=== PATIENT | female | born 1965 | race Caucasian/White ===

== ENCOUNTER → 2017-12-02 | Outpatient (CLI) | payer BC ==
[2017-12-03 02:26] LABS: Rheumatoid Factor <4 IU/mL (0-13)
== END | disposition home or self-care (01) ==
LOC: LABWHC1 15:13
PROVIDERS: ATTEND Orthopaedic Surgery
DX: M06.9 Rheumatoid arthritis, unspecified (principal)
CPT/HCPCS: 36415; 85652; 86038; 86140; 86431

== ENCOUNTER → 2018-07-07 | Outpatient (CLI) | payer MEDICAID, BC ==
--- NOTE | 2018-07-07 22:58 | FL ---
MODIFIED SWALLOW / DEGLUTITION STUDY DATE OF EXAM: 07/07/2018 CLINICAL HISTORY: 53-year-old female with food sticking in chest, Dysphagia. TECHNIQUE: Deglutition study is performed utilizing thin liquid barium, honey and nectar thick liqui d barium, barium thick applesauce, and barium coated cracker. COMPARISON: None. Total fluoroscopy time: 1 minute 40 seconds. Total images: None. Real-time fluoroscopy support was provided to speech pathology. FINDINGS: Anterior cervical scar within the lower cervical spine causes mild posterior impression on hypopharyn geal wall. Mild cervical reflux is demonstrated. The AP view shows delayed clearance with solids and liquids from the thoracic portion of the esophagus. No penetration or aspiration is demonstrated. IMPRESSION: 1. No evidence for penetration or aspiration. There is mild cervical reflux demonstrated. In addition , the AP view shows delayed clearance from the thoracic portion of the esophagus. This may be seconda ry to esophageal dysmotility. Esophagram can be performed to assess the mucosa, esophageal caliber, a nd motility. 2. Please refer to speech therapist notes for further details if necessary.
== END | disposition home or self-care (01) ==
LOC: RADFLMAIN 10:50
PROVIDERS: ATTEND Internal Medicine
DX: K21.9 Gastro-esophageal reflux disease without esophagitis (principal); K22.8 Other specified diseases of esophagus; Z88.1 Allergy status to other antibiotic agents
CPT/HCPCS: 74230

== ENCOUNTER 2018-07-24 09:02 | Inpatient (IN) | payer MEDICAID, BC ==
--- NOTE | 2018-07-24 09:27 | ED ---
General Adult HPI - General Chief complaint: Shortness of Breath Stated complaint: EMEKA/poss pneumonia Time Seen by Provider: 07/24/18 09:05 Source: patient, RN notes reviewed Mode of arrival: wheelchair Limitations: no limitations - History of Present Illness Initial comments: [id number] female presents emergency Department complaining shortness of breath and some chest pain in the substernal region. Patient states last night she had a fever for 102 and started a slight cough. Patient states she denies any sputum production. Patient states she had pneumonia last year and this is what this feels like. Patient denies any history of COPD or asthma. Patient denies any cardiac issues. Though patient states she feels very short of breath her oxygenation is 100%. Patient denies any abdominal pain patient denies nausea vomiting diarrhea. Patient denies any lightheadedness dizziness or near syncopal episode. Patient denies any history of anxiety. Patient denies any calf pain or leg swelling. - Related Data Allergies Allergy/AdvReac Type Severity Reaction Status Date / Time levofloxacin [From Levaquin] Allergy Unknown Verified 07/24/18 09:10 Review of Systems ROS Statement: Those systems with pertinent positive or pertinent negative responses have been documented in the HPI. ROS Other: All systems not noted in ROS Statement are negative. Past Medical History Past Medical History: Pneumonia History of Any Multi-Drug Resistant Organisms: None Reported Past Surgical History: Cholecystectomy, Hernia Repair, Hysterectomy, Joint Replacement Additional Past Surgical History / Comment(s): Mutiple knee surgeries Past Psychological History: No Psychological Hx Reported Smoking Status: Never smoker Past Alcohol Use History: Occasional Past Drug Use History: None Reported General Exam - General Exam Comments Initial Comments: GENERAL: Patient is well-developed and well-nourished. Patient is nontoxic and well- hydrated and is in mild distress. ENT: Neck is soft and supple. No significant lymphadenopathy is noted. Oropharynx is clear. Moist mucous membranes. Neck has full range of motion without eliciting any pain. EYES: The sclera were anicteric and conjunctiva were pink and moist. Extraocular movements were intact and pupils were equal round and reactive to light. Eyelids were unremarkable. PULMONARY: Unlabored respirations. Good breath sounds bilaterally. No audible rales rhonchi or wheezing was noted. CARDIOVASCULAR: There is a regular rate and rhythm without any murmurs gallops or rubs. ABDOMEN: Soft and nontender with normal bowel sounds. No palpable organomegaly was noted. There is no palpable pulsatile mass. SKIN: Skin is clear with no lesions or rashes and otherwise unremarkable. NEUROLOGIC: Patient is alert and oriented x3. Cranial nerves II through XII are grossly intact. Motor and sensory are also intact. Normal speech, volume and content. Symmetrical smile. MUSCULOSKELETAL: Normal extremities with adequate strength and full range of motion. No lower extremity swelling or edema. No calf tenderness. LYMPHATICS: No significant lymphadenopathy is noted PSYCHIATRIC: Normal psychiatric evaluation. Patient appears mildly anxious Limitations: no limitations Course Vital Signs 07/24/18 07/24/18 07/24/18 09:05 10:30 10:40 Temperature 98.0 F Pulse Rate 109 H 76 Respiratory 22 9 L Rate Blood Pressure 138/83 112/78 123/67 O2 Sat by Pulse 100 95 97 Oximetry 07/24/18 07/24/18 07/24/18 10:50 11:00 11:10 Temperature Pulse Rate 81 87 83 Respiratory 12 9 L 18 Rate Blood Pressure 123/67 123/67 123/67 O2 Sat by Pulse 98 96 96 Oximetry 07/24/18 11:20 Temperature Pulse Rate Respiratory Rate Blood Pressure 123/67 O2 Sat by Pulse Oximetry Medical Decision Making - Medical Decision Making EKG shows normal sinus rhythm at 80 bpm [place] interval 150 QRS 84 QT interval 346 QTC is 399. Patient's EKG shows no ST segment elevation or depression or T wave abnormalities are noted. Chest x-ray showed no acute abnormality. Computed tomography scan showed bilateral patchy infiltrate consistent with pneumonia at this point in time at 105 patient was considered to be septic. - Lab Data Result diagrams: 07/24/18 10:12 07/24/18 10:12 Lab Results 07/24/18 07/24/18 07/24/18 Range/Units 10:12 10:12 10:12 WBC 14.5 H (3.8-10.6) k/uL RBC 4.56 (3.80-5.40) m/uL Hgb 13.9 (11.4-16.0) gm/dL Hct 41.6 (34.0-46.0) % MCV 91.3 (80.0-100.0) fL MCH 30.6 (25.0-35.0) pg MCHC 33.5 (31.0-37.0) g/dL RDW 13.5 (11.5-15.5) % Plt Count 239 (150-450) k/uL Neutrophils % 88 % Lymphocytes % 6 % Monocytes % 4 % Eosinophils % 1 % Basophils % 0 % Neutrophils # 12.8 H (1.3-7.7) k/uL Lymphocytes # 0.8 L (1.0-4.8) k/uL Monocytes # 0.6 (0-1.0) k/uL Eosinophils # 0.2 (0-0.7) k/uL Basophils # 0.1 (0-0.2) k/uL PT (9.0-12.0) sec INR (<1.2) APTT (22.0-30.0) sec D-Dimer (<0.60) mg/L FEU Sodium 142 (137-145) mmol/L Potassium 4.4 (3.5-5.1) mmol/L Chloride 112 H (98-107) mmol/L Carbon Dioxide 21 L (22-30) mmol/L Anion Gap 9 mmol/L BUN 6 L (7-17) mg/dL Creatinine 0.88 (0.52-1.04) mg/dL Est GFR (CKD-EPI)AfAm 88 (>60 ml/min/1.73 sqM) Est GFR (CKD-EPI)NonAf 76 (>60 ml/min/1.73 sqM) Glucose 110 H (74-99) mg/dL Plasma Lactic Acid Art (0.7-2.0) mmol/L Calcium 9.7 (8.4-10.2) mg/dL Magnesium 1.6 (1.6-2.3) mg/dL Total Bilirubin 1.0 (0.2-1.3) mg/dL AST 30 (14-36) U/L ALT 30 (9-52) U/L Alkaline Phosphatase 50 (38-126) U/L Total Creatine Kinase 68 (30-135) U/L CK-MB (CK-2) 0.5 (0.0-2.4) ng/mL CK-MB (CK-2) Rel Index 0.7 Troponin I <0.012 (0.000-0.034) ng/mL NT-Pro-B Natriuret Pep pg/mL Total Protein 6.7 (6.3-8.2) g/dL Albumin 3.7 (3.5-5.0) g/dL Influenza Type A RNA (Not Detectd) Influenza Type B (PCR) (Not Detectd) 07/24/18 07/24/18 07/24/18 Range/Units 10:12 10:12 10:12 WBC (3.8-10.6) k/uL RBC (3.80-5.40) m/uL Hgb (11.4-16.0) gm/dL Hct (34.0-46.0) % MCV (80.0-100.0) fL MCH (25.0-35.0) pg MCHC (31.0-37.0) g/dL RDW (11.5-15.5) % Plt Count (150-450) k/uL Neutrophils % % Lymphocytes % % Monocytes % % Eosinophils % % Basophils % % Neutrophils # (1.3-7.7) k/uL Lymphocytes # (1.0-4.8) k/uL Monocytes # (0-1.0) k/uL Eosinophils # (0-0.7) k/uL Basophils # (0-0.2) k/uL PT 10.2 (9.0-12.0) sec INR 1.0 (<1.2) APTT 22.7 (22.0-30.0) sec D-Dimer 0.64 H (<0.60) mg/L FEU Sodium (137-145) mmol/L Potassium (3.5-5.1) mmol/L Chloride (98-107) mmol/L Carbon Dioxide (22-30) mmol/L Anion Gap mmol/L BUN (7-17) mg/dL Creatinine (0.52-1.04) mg/dL Est GFR (CKD-EPI)AfAm (>60 ml/min/1.73 sqM) Est GFR (CKD-EPI)NonAf (>60 ml/min/1.73 sqM) Glucose (74-99) mg/dL Plasma Lactic Acid Art (0.7-2.0) mmol/L Calcium (8.4-10.2) mg/dL Magnesium (1.6-2.3) mg/dL Total Bilirubin (0.2-1.3) mg/dL AST (14-36) U/L ALT (9-52) U/L Alkaline Phosphatase (38-126) U/L Total Creatine Kinase (30-135) U/L CK-MB (CK-2) (0.0-2.4) ng/mL CK-MB (CK-2) Rel Index Troponin I (0.000-0.034) ng/mL NT-Pro-B Natriuret Pep 306 pg/mL Total Protein (6.3-8.2) g/dL Albumin (3.5-5.0) g/dL Influenza Type A RNA Not Detected (Not Detectd) Influenza Type B (PCR) Not Detected (Not Detectd) 07/24/18 Range/Units 10:12 WBC (3.8-10.6) k/uL RBC (3.80-5.40) m/uL Hgb (11.4-16.0) gm/dL Hct (34.0-46.0) % MCV (80.0-100.0) fL MCH (25.0-35.0) pg MCHC (31.0-37.0) g/dL RDW (11.5-15.5) % Plt Count (150-450) k/uL Neutrophils % % Lymphocytes % % Monocytes % % Eosinophils % % Basophils % % Neutrophils # (1.3-7.7) k/uL Lymphocytes # (1.0-4.8) k/uL Monocytes # (0-1.0) k/uL Eosinophils # (0-0.7) k/uL Basophils # (0-0.2) k/uL PT (9.0-12.0) sec INR (<1.2) APTT (22.0-30.0) sec D-Dimer (<0.60) mg/L FEU Sodium (137-145) mmol/L Potassium (3.5-5.1) mmol/L Chloride (98-107) mmol/L Carbon Dioxide (22-30) mmol/L Anion Gap mmol/L BUN (7-17) mg/dL Creatinine (0.52-1.04) mg/dL Est GFR (CKD-EPI)AfAm (>60 ml/min/1.73 sqM) Est GFR (CKD-EPI)NonAf (>60 ml/min/1.73 sqM) Glucose (74-99) mg/dL Plasma Lactic Acid Art 2.4 H* (0.7-2.0) mmol/L Calcium (8.4-10.2) mg/dL Magnesium (1.6-2.3) mg/dL Total Bilirubin (0.2-1.3) mg/dL AST (14-36) U/L ALT (9-52) U/L Alkaline Phosphatase (38-126) U/L Total Creatine Kinase (30-135) U/L CK-MB (CK-2) (0.0-2.4) ng/mL CK-MB (CK-2) Rel Index Troponin I (0.000-0.034) ng/mL NT-Pro-B Natriuret Pep pg/mL Total Protein (6.3-8.2) g/dL Albumin (3.5-5.0) g/dL Influenza Type A RNA (Not Detectd) Influenza Type B (PCR) (Not Detectd) Disposition Clinical Impression: Bilateral pneumonia Disposition: ADMITTED IP TO THIS HOSP Referrals: Cheryl Rdz MD [Primary Care Provider] - 1-2 days Time of Disposition: 13:10
[2018-07-24 10:34] LABS: Basophils # (A) 0.1 k/uL (0-0.2); Basophils % (A) 0 %; Eosinophils # (A) 0.2 k/uL (0-0.7); Eosinophils % (A) 1 %; HCT 41.6 % (34.0-46.0); HGB 13.9 gm/dL (11.4-16.0); Lymphocytes # (A) 0.8 k/uL (1.0-4.8); Lymphocytes % (A) 6 %; MCH 30.6 pg (25.0-35.0); MCHC 33.5 g/dL (31.0-37.0); MCV 91.3 fL (80.0-100.0); Monocytes # (A) 0.6 k/uL (0-1.0); Monocytes % (A) 4 %; Neutrophils # (A) 12.8 k/uL (1.3-7.7); Neutrophils % (A) 88 %; Platelet Count 239 k/uL (150-450); RBC 4.56 m/uL (3.80-5.40); RDW 13.5 % (11.5-15.5); WBC 14.5 k/uL (3.8-10.6)
[2018-07-24 10:48] LABS: Albumin 3.7 g/dL (3.5-5.0); Calcium 9.7 mg/dL (8.4-10.2); Magnesium 1.6 mg/dL (1.6-2.3); Partial Thromboplastin Time 22.7 sec (22.0-30.0); Potassium 4.4 mmol/L (3.5-5.1); Prothrombin Time 10.2 sec (9.0-12.0); Total Protein 6.7 g/dL (6.3-8.2)
[2018-07-24 10:53] LABS: D-Dimer 0.64 mg/L FEU (<0.60)
[2018-07-24 11:10] LABS: Creatine Kinase 68 U/L (30-135)
[2018-07-24 11:22] LABS: Creatine Kinase MB 0.5 ng/mL (0.0-2.4); Troponin I <0.012 ng/mL (0.000-0.034)
--- NOTE | 2018-07-24 11:29 | XR ---
EXAMINATION TYPE: XR chest 2V DATE OF EXAM: 07/24/2018 HISTORY: difficulty breathing. REFERENCE: NONE. FINDINGS: The lungs are clear. Pleural space are clear. Heart size is normal. IMPRESSION: NO ACUTE INTRATHORACIC ABNORMALITY.
[2018-07-24] MEDS ORDERED: SODIUM CHLORIDE 0.9% 1,000 ML IV ONE (12:31)
--- NOTE | 2018-07-24 12:56 | CT ---
EXAMINATION TYPE: CT chest angio for PE DATE OF EXAM: 07/24/2018 COMPARISON: None. HISTORY: Pt difficulty in breathing, tightness in middle chest. Hx pneumonia. CT DLP: 282.4 mGycm Automated exposure control for dose reduction was used. CONTRAST: CT Chest for pulmonary embolism performed with with IV Contrast, patient injected with 100 mL of Isov ue 370. FINDINGS: There are bilateral areas of groundglass opacity and tree-in-bud opacities consistent with pneumonia. There is some shotty mediastinal adenopathy. No pathological adenopathy is identified. There is no evidence of pulmonary embolus. The aorta is normal in caliber without evidence of dissection. There is no pleural or pericardial fluid. The heart is not enlarged. No bony lesion is seen. IMPRESSION: 1. THIS EXAMINATION IS NEGATIVE FOR PULMONARY EMBOLUS. 2. FINDINGS CONSISTENT WITH PATCHY, BILATERAL PNEUMONIA.
[2018-07-24] MEDS ORDERED: cefTRIAXone 2,000 MG in SODIUM CHLORIDE 0.9% 100 ML IVPB STA (13:06)
[2018-07-24] MEDS ORDERED: PNEUMONIA PROTOCOL UTILIZED 1 EACH MISC PO PRN (13:10)
[2018-07-24] MEDS ORDERED: AZITHROMYCIN 500 MG in SODIUM CHLORIDE 0.9% 250 ML IVPB STA (13:10)
[2018-07-24] MEDS: ACETAMINOPHEN TAB 325 MG TAB PO PRN ×2 (14:45→20:41)
[2018-07-24 15:25] VITALS: BMI 35.2
--- NOTE | 2018-07-24 16:43 | P.HPIM ---
History of Present Illness H&P Date: 07/24/18 Chief Complaint: Fever with shortness of breath Ms. Beth is a 53-year-old female with a past medical history of pneumonia coming into the hospital with a chief complaint of fever and difficulty in breathing for the past 1 day. The patient states that she started to have sore throat yesterday morning and later in the afternoon patient had chills with fever. Eventually patient developed difficulty in breathing and she was very short of breath and came into the emergency department for further evaluation. Patient states that her grandkids have been sick and she was around them couple of days back. Patient has a history of pneumonia and she had it around last year exactly not sure when she had it but she thinks she feels the same. Patient denies having any cough. Patient denies having any chest pain or palpitations. No orthopnea PND. Patient denies having any lower extremities swelling. Patient denies having any abdominal pain nausea vomiting or diarrhea or constipation. Denies having any headaches blurring of vision or dizziness. No syncopal or seizure like episodes. Patient denies having any calf or leg pain. No history of recent travel. In the emergency department patient had chest x-ray that was within normal limits. She had a CT Angio of the chest showing patchy bilateral pneumonia and negative for PE. The patient is admitted for further management. Review of Systems REVIEW OF SYSTEMS: PSYCH: No anxiety or depression NEURO:No c/o weakness of the extremties, No facial droop, No speech abnormalities. VASCULAR: Peripheral nervous system within the normal limits no edema HEMATOLOGIC: No history of easy bleeding and bruising . No recent infections . 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 GI: No abdominal pain, Nausea or vomiting. No constipation or diarrhea. Past Medical History Past Medical History: Pneumonia History of Any Multi-Drug Resistant Organisms: None Reported Past Surgical History: Cholecystectomy, Hernia Repair, Hysterectomy, Joint Replacement Additional Past Surgical History / Comment(s): Mutiple knee surgeries Past Psychological History: No Psychological Hx Reported Smoking Status: Never smoker Past Alcohol Use History: Occasional Past Drug Use History: None Reported Medications and Allergies Home Medications Medication Instructions Recorded Confirmed Type Gabapentin [Neurontin] 300 mg PO HS 07/24/18 07/24/18 History Allergies Allergy/AdvReac Type Severity Reaction Status Date / Time levofloxacin [From Levaquin] Allergy Unknown Verified 07/24/18 14:30 Physical Exam Vitals: Vital Signs Temp Pulse Pulse Resp BP BP Pulse Ox 07/24/18 15:05 97.7 F 76 17 128/61 98 07/24/18 14:37 98 F 07/24/18 14:30 80 14 125/64 97 07/24/18 14:00 81 13 137/71 98 07/24/18 13:30 87 14 126/81 98 07/24/18 13:00 86 13 125/60 98 07/24/18 12:30 87 14 97 07/24/18 12:00 90 16 128/58 98 07/24/18 11:30 86 16 123/67 97 07/24/18 11:20 123/67 07/24/18 11:10 83 18 123/67 96 07/24/18 11:00 87 9 L 123/67 96 07/24/18 10:50 81 12 123/67 98 07/24/18 10:40 76 9 L 123/67 97 07/24/18 10:30 112/78 95 07/24/18 09:05 98.0 F 109 H 22 138/83 100 Intake and Output 07/24/18 07/24/18 07/24/18 06:59 14:59 22:59 Other: Weight 102.058 kg GENERAL EXAM GEN. APPEARANCE: alert, in no apparent distress HEAD EXAM: atraumatic, normocephalic, normal inspection EYE EXAM: No pallor or icterus ENT EXAM: normal exam, mucous membranes moist NECK EXAM: No thyromegaly or no JVD RESPIRATORY EXAM: Bilateral coarse breath sounds. No crackles or wheezes. CARDIOVASCULAR EXAM: Tachycardia. S1 and S2 heard. GI/ABDOMINAL EXAM: soft, normal bowel sounds. Absent: distended, tenderness, guarding, rebound, rigid EXTREMITIES EXAM: No edema or cyanosis. NEUROLOGICAL EXAM: alert, oriented X3, no focal neurological deficits PSYCHIATRIC EXAM: normal affect, normal mood SKIN EXAM: warm, dry, intact, normal color. Absent: rash Results CBC & Chem 7: 07/24/18 10:12 07/24/18 10:12 Labs: Abnormal Lab Results - Last 24 Hours (Table) 07/24/18 07/24/18 07/24/18 Range/Units 10:12 10:12 10:12 WBC 14.5 H (3.8-10.6) k/uL Neutrophils # 12.8 H (1.3-7.7) k/uL Lymphocytes # 0.8 L (1.0-4.8) k/uL D-Dimer 0.64 H (<0.60) mg/L FEU Chloride 112 H (98-107) mmol/L Carbon Dioxide 21 L (22-30) mmol/L BUN 6 L (7-17) mg/dL Glucose 110 H (74-99) mg/dL Plasma Lactic Acid Art (0.7-2.0) mmol/L 07/24/18 Range/Units 10:12 WBC (3.8-10.6) k/uL Neutrophils # (1.3-7.7) k/uL Lymphocytes # (1.0-4.8) k/uL D-Dimer (<0.60) mg/L FEU Chloride (98-107) mmol/L Carbon Dioxide (22-30) mmol/L BUN (7-17) mg/dL Glucose (74-99) mg/dL Plasma Lactic Acid Art 2.4 H* (0.7-2.0) mmol/L Assessment and Plan Assessment: Sepsis secondary to community acquired pneumonia Chronic osteoarthritis of bilateral knees Right upper extremity peripheral neuropathy History of cholecystectomy History of hysterectomy History of hernia repair Plan: Patient has been started on ceftriaxone and Zithromax for community- acquired pneumonia. We will restart her home medication of gabapentin for her peripheral neuropathy. DVT prophylaxis. Further recommendations to follow depending on the course of the patient.
[2018-07-24] MEDS: GABAPENTIN 300 MG CAP PO SCH (20:09)
[2018-07-24] MEDS: ENOXAPARIN 40 MG/0.4 ML SYRINGE SQ SCH (20:09)
[2018-07-25] MEDS: ACETAMINOPHEN TAB 325 MG TAB PO PRN ×4 (03:11→21:52)
--- NOTE | 2018-07-25 06:54 | XR ---
EXAMINATION TYPE: XR chest 2V DATE OF EXAM: 07/25/2018 HISTORY: pneumonia. REFERENCE: Previous study dated 07/24/2018. FINDINGS: The lungs remain clear. Pleural space are clear. The heart is not enlarged. IMPRESSION: NO ACTIVE INTRATHORACIC DISEASE.
[2018-07-25] MEDS: ENOXAPARIN 40 MG/0.4 ML SYRINGE SQ SCH (07:21)
[2018-07-25] MEDS: AZITHROMYCIN 500 MG TAB PO SCH (07:21)
[2018-07-25 07:47] LABS: Basophils % (A) 0 %; Eosinophils # (A) 0.1 k/uL (0-0.7); Eosinophils % (A) 1 %; HCT 38.7 % (34.0-46.0); HGB 12.5 gm/dL (11.4-16.0); Lymphocytes % (A) 17 %; MCH 30.6 pg (25.0-35.0); MCHC 32.4 g/dL (31.0-37.0); MCV 94.5 fL (80.0-100.0); Mean Platelet Volume 7.1; Monocytes # (A) 0.5 k/uL (0-1.0); Monocytes % (A) 4 %; Neutrophils # (A) 9.1 k/uL (1.3-7.7); Neutrophils % (A) 76 %; Platelet Count 272 k/uL (150-450); RDW 13.7 % (11.5-15.5); WBC 11.9 k/uL (3.8-10.6)
[2018-07-25 08:03] LABS: Calcium 8.6 mg/dL (8.4-10.2); Potassium 4.1 mmol/L (3.5-5.1)
--- NOTE | 2018-07-25 12:32 | P.PN ---
Subjective Progress Note Date: 07/25/18 Principal diagnosis: Bilateral pneumonia Ms. Beth is a 53-year-old female with a past medical history of pneumonia coming into the hospital with a chief complaint of fever and difficulty in breathing for the past 1 day. The patient states that she started to have sore throat yesterday morning and later in the afternoon patient had chills with fever. Eventually patient developed difficulty in breathing and she was very short of breath and came into the emergency department for further evaluation. Patient states that her grandkids have been sick and she was around them couple of days back. Patient has a history of pneumonia and she had it around last year exactly not sure when she had it but she thinks she feels the same. Patient denies having any cough. Patient denies having any chest pain or palpitations. No orthopnea PND. Patient denies having any lower extremities swelling. Patient denies having any abdominal pain nausea vomiting or diarrhea or constipation. Denies having any headaches blurring of vision or dizziness. No syncopal or seizure like episodes. Patient denies having any calf or leg pain. No history of recent travel. In the emergency department patient had chest x-ray that was within normal limits. She had a CT Angio of the chest showing patchy bilateral pneumonia and negative for PE. Today the patient is lying in bed appears to be in acute distress. Patient states that she did not have any fevers overnight. If her creatinine breathing is improved. No cough or chest pain. Denies having any palpitations. Patient denies having any abdominal pain nausea vomiting or diarrhea. No dysuria or hematuria. Objective - Vital Signs Vital signs: Vital Signs Temp 98.3 F 07/25/18 04:46 Pulse 92 07/25/18 04:46 Resp 18 07/25/18 04:46 BP 96/61 07/25/18 04:46 Pulse Ox 97 07/25/18 04:46 Intake & Output 07/24/18 07/25/18 07/25/18 19:59 06:59 18:59 Intake Total Balance Weight Intake: Intake, IV Titration Amount Sodium Chloride 0.9% 1, 000 ml @ 999 mls/hr IV . Q1H1M ONE Rx#:[id number] cefTRIAXone 1,000 mg In Sodium Chloride 0.9% 50 ml @ 100 mls/hr IVPB Q24HR [facility] Rx#:[id number] Other: Voiding Method # Voids - Exam GEN. APPEARANCE: alert, in no apparent distress HEAD EXAM: atraumatic, normocephalic, normal inspection EYE EXAM: No pallor or icterus ENT EXAM: normal exam, mucous membranes moist NECK EXAM: No thyromegaly or no JVD RESPIRATORY EXAM: Bilateral breath sounds positive. No crackles or wheeze. CARDIOVASCULAR EXAM: Tachycardia. S1 and S2 heard. GI/ABDOMINAL EXAM: soft, normal bowel sounds. Absent: distended, tenderness, guarding, rebound, rigid EXTREMITIES EXAM: No edema or cyanosis. NEUROLOGICAL EXAM: alert, oriented X3, no focal neurological deficits PSYCHIATRIC EXAM: normal affect, normal mood SKIN EXAM: warm, dry, intact, normal color. Absent: rash - Labs CBC & Chem 7: 07/25/18 06:33 07/25/18 06:33 Labs: Abnormal Lab Results - Last 24 Hours (Table) 07/24/18 07/25/18 07/25/18 Range/Units 15:00 06:33 06:33 WBC 11.9 H (3.8-10.6) k/uL Neutrophils # 9.1 H (1.3-7.7) k/uL Chloride 113 H (98-107) mmol/L BUN 6 L (7-17) mg/dL Plasma Lactic Acid Art 3.1 H* (0.7-2.0) mmol/L Assessment and Plan Assessment: Sepsis secondary to community acquired pneumonia Chronic osteoarthritis of bilateral knees Right upper extremity peripheral neuropathy History of cholecystectomy History of hysterectomy History of hernia repair Plan: Patient doing much better compared to yesterday. WBC trending down. Patient has been started on ceftriaxone and Zithromax for community-acquired pneumonia will be continued. We will restart her home medication of gabapentin for her peripheral neuropathy. DVT prophylaxis. Further recommendations to follow depending on the course of the patient.
[2018-07-25] MEDS ORDERED: diphenhydrAMINE 25 MG CAP PO PRN (18:15)
[2018-07-25] MEDS: GABAPENTIN 300 MG CAP PO SCH (19:56)
[2018-07-26 05:05] VITALS: RESP 16
[2018-07-26 08:53] LABS: Basophils % (A) 0 %; Eosinophils # (A) 0.2 k/uL (0-0.7); Eosinophils % (A) 2 %; HCT 40.8 % (34.0-46.0); HGB 13.5 gm/dL (11.4-16.0); Lymphocytes # (A) 1.9 k/uL (1.0-4.8); Lymphocytes % (A) 24 %; MCH 30.4 pg (25.0-35.0); MCV 92.2 fL (80.0-100.0); Mean Platelet Volume 6.7; Monocytes # (A) 0.3 k/uL (0-1.0); Monocytes % (A) 3 %; Neutrophils # (A) 5.6 k/uL (1.3-7.7); Neutrophils % (A) 69 %; Platelet Count 298 k/uL (150-450); RBC 4.43 m/uL (3.80-5.40); RDW 13.5 % (11.5-15.5); WBC 8.1 k/uL (3.8-10.6)
[2018-07-26 09:04] LABS: Anion Gap 7 mmol/L; Blood Urea Nitrogen 9 mg/dL (7-17); Calcium 9.4 mg/dL (8.4-10.2); Carbon Dioxide 22 mmol/L (22-30); Chloride 111 mmol/L (98-107); Glucose 128 mg/dL (74-99); Potassium 4.3 mmol/L (3.5-5.1); Sodium 140 mmol/L (137-145)
[2018-07-26] MEDS: AZITHROMYCIN 500 MG TAB PO SCH (09:14)
[2018-07-26] MEDS: ENOXAPARIN 40 MG/0.4 ML SYRINGE SQ SCH (09:14)
[2018-07-26] MEDS: ACETAMINOPHEN TAB 325 MG TAB PO PRN (09:33)
[2018-07-26 12:25] VITALS: BP 130/60; PULSE 75; TEMP 97.9
--- NOTE | 2018-07-27 23:33 | P.DS ---
Providers Date of admission: 07/24/18 13:10 Expected date of discharge: 07/26/18 Attending physician: Sanaz Tracey Primary care physician: Kendell Luna [place] [facility] Course: Discharge diagnosis Sepsis secondary to community acquired pneumonia Chronic osteoarthritis of bilateral knees Right upper extremity peripheral neuropathy History of cholecystectomy History of hysterectomy History of hernia repair Hospital course Ms. Beth is a 53-year-old female with a past medical history of pneumonia coming into the hospital with a chief complaint of fever and difficulty in breathing for the past 1 day. The patient states that she started to have sore throat yesterday morning and later in the afternoon patient had chills with fever. Eventually patient developed difficulty in breathing and she was very short of breath and came into the emergency department for further evaluation. Patient states that her grandkids have been sick and she was around them couple of days back. Patient has a history of pneumonia and she had it around last year exactly not sure when she had it but she thinks she feels the same. Patient denies having any cough. Patient denies having any chest pain or palpitations. No orthopnea PND. Patient denies having any lower extremities swelling. Patient denies having any abdominal pain nausea vomiting or diarrhea or constipation. Denies having any headaches blurring of vision or dizziness. No syncopal or seizure like episodes. Patient denies having any calf or leg pain. No history of recent travel. In the emergency department patient had chest x-ray that was within normal limits. She had a CT Angio of the chest showing patchy bilateral pneumonia and negative for PE. On 02-05 the patient is lying in bed appears to be in acute distress. Patient states that she did not have any fevers overnight. If her creatinine breathing is improved. No cough or chest pain. Denies having any palpitations. Patient denies having any abdominal pain nausea vomiting or diarrhea. No dysuria or hematuria. 07/27/2018 Patient did improve clinically. No complains of chest pain or shortness of breath. No fever no chills. No acute overnight issues. She Plan Patient was continued on ceftriaxone and Zithromax for community-acquired pneumonia will be continued. Continued with home medication of gabapentin for her peripheral neuropathy. DVT prophylaxis. Improving clinically. Stable to be discharged home to complete the antibiotic course. Discharge physical examination was done and vitals reviewed. Patient Condition at Discharge: Stable Plan - Discharge Summary New Discharge Prescriptions: New Cefuroxime Axetil [Ceftin] 500 mg PO BID 4 Days #8 tab Continue Gabapentin [Neurontin] 300 mg PO HS Discharge Medication List Gabapentin [Neurontin] 300 mg PO HS 07/24/18 [History] Cefuroxime Axetil [Ceftin] 500 mg PO BID 4 Days #8 tab 07/26/18 [Rx] Follow up Appointment(s)/Referral(s): Cheryl Rdz MD [Primary Care Provider] - 08/04/18 1:50 pm Patient Instructions/Handouts: Cefuroxime (By mouth), Pneumonia (DC) Discharge Disposition: HOME SELF-CARE
== END 2018-07-26 14:25 | disposition home or self-care (01) | DRG 871 ==
LOC: EC 09:02 → 3NMEDONC 13:10
PROVIDERS: ADMIT Internal Medicine; ATTEND Internal Medicine
DX: A41.9 Sepsis, unspecified organism (principal); J18.9 Pneumonia, unspecified organism; M17.0 Bilateral primary osteoarthritis of knee; G62.9 Polyneuropathy, unspecified; Z87.01 Personal history of pneumonia (recurrent); Z90.710 Acquired absence of both cervix and uterus; Z90.49 Acquired absence of other specified parts of digestive tract; Z88.1 Allergy status to other antibiotic agents; Z98.890 Other specified postprocedural states
CPT/HCPCS: 36415; 71046; 71275; 80048; 80053; 82550; 82553; 83605; 83735; 83880; 84484; 85025; 85379; 85610; 85730; 87040; 87502; 93005; 96365; 99285

== ENCOUNTER 2018-08-26 08:51 | Day surgery (SDC) | payer MEDICAID, BC ==
[2018-08-25 08:59] VITALS: BMI 35.2
[~2018-08-26 08:51] MED LIST: LACTATED RINGERS 1,000 ML IV SCH
[2018-08-26 09:14] VITALS: RESP 16; TEMP 97.6
[2018-08-26] MEDS ORDERED: ONDANSETRON 4 MG/2 ML VIAL IVP ONE (09:34)
[2018-08-26] MEDS ORDERED: PROPOFOL 10 MG/ML 20 ML VIAL IV ONE (10:00)
[2018-08-26] MEDS ORDERED: LIDOCAINE 1% INJ 10MG/ML (20 ML MDV) ONE (10:00)
[2018-08-26] MEDS ORDERED: MIDAZOLAM 2 MG/2 ML VIAL ONE (10:00)
[2018-08-26 10:40] VITALS: BP 129/79; PULSE 50
--- NOTE | 2018-08-26 11:22 | P.PCN ---
Date of Procedure: 08/26/18 Procedure(s) Performed: Procedure: Esophagogastroduodenoscopy and biopsy. Preoperative diagnosis: Dysphagia. Postoperative diagnosis: 1. Hiatal hernia with LA grade B/C distal esophagitis but no strictures or definite Mcgee's esophagus. 2. Mild gastritis and duodenitis. 3. Biopsies obtained from the duodenum, antrum and esophagus. Preparation and sedation: Was provided by anesthesia. Brief clinical history: The patient is a 53-year-old female who has been troubled with intermittent difficulties with swallowing over the last 6 months. She has rare episodes of reflux. No alarm symptoms. She has taken Prevacid rarely and as needed over the last year for some reflux Symptoms. She a had a video swallowing study that raised the possibility of motility disorder and reported some degree of cervical reflux. Procedure: With the patient on her left lateral decubitus position and after informed consent and adequate sedation, I passed the Olympus-GIF 160 video upper endoscope through the cricopharyngeus down the esophagus. GE junction was around 36 cm from the incisors and there was a 2-3 cm hiatal hernia and a grade B/C distal esophagitis but no definite stricture or Mcgee's esophagus. The endoscope was then passed into the stomach which was insufflated with air and inspected in detail including the retroflex view in the cardia. There was some mottling and erythema in the antrum but no ulcers or erosions. Pyloric channel, duodenal bulb, post bulbar area and descending duodenum were examined. There was mild erythema and friability in the duodenum with no ulcers, bleeding or strictures. I obtained biopsies from the duodenum, antrum and esophagus then the endoscope was withdrawn. The patient tolerated the procedure well. Plan: The patient was reassured. I asked her to follow antireflux diet and measures and to take Prevacid more consistently possibly twice a day and I will see her in follow-up in the office in 3 or 4 months. If she continues to have dysphagia despite healing of her esophagitis, I will schedule repeat exam for dilation. She will follow-up with you as planned and I will keep you updated on her progress.
== END 2018-08-26 11:01 | disposition home or self-care (01) ==
LOC: ORWHC2ENDO 08:51
DX: K20.0 Eosinophilic esophagitis (principal); K29.50 Unspecified chronic gastritis without bleeding; K29.80 Duodenitis without bleeding; G62.9 Polyneuropathy, unspecified; Z79.899 Other long term (current) drug therapy; Z88.1 Allergy status to other antibiotic agents
CPT/HCPCS: 88305; 43239; J2250; J2405; J2001; J2704

== ENCOUNTER → 2018-08-30 | Outpatient (CLI) | payer BC, MEDICAID ==
--- NOTE | 2018-09-02 14:09 | MM ---
Reason for exam: screening (asymptomatic). Last mammogram was performed 2 years and 3 months ago. History: Patient is postmenopausal. Family history of breast cancer in mother at age 58 and breast cancer in maternal aunt. Physical Findings: A clinical breast exam by your physician is recommended on an annual basis and results should be correlated with mammographic findings. MG 3D Screening Mammo W/Cad Bilateral CC and MLO view(s) were taken. Prior study comparison: June 11, 2016, left breast MG work up mamm w CAD LT. June 09, 2016, bilateral MG screening mammo w CAD. Focal asymmetry right CC view. No significant changes when compared with prior studies. ASSESSMENT: Probably benign, BI-RAD 3 RECOMMENDATION: Follow-up diagnostic mammogram of the right breast in 6 months.
== END ==
LOC: RADMAMWWP 16:45
PROVIDERS: ATTEND Obstetrics & Gynecology
DX: Z12.31 Encounter for screening mammogram for malignant neoplasm of breast (principal); Z80.3 Family history of malignant neoplasm of breast; N95.1 Menopausal and female climacteric states
CPT/HCPCS: 77063; 77067; 82670; 83001; 83002

== ENCOUNTER → 2019-04-20 | Outpatient (CLI) | payer MEDICAID, BC ==
--- NOTE | 2019-04-21 09:59 | MM ---
Reason for exam: follow-up at short interval from prior study. Last mammogram was performed 8 months ago. History: Patient is postmenopausal. Family history of breast cancer in mother at age 58 and breast cancer in maternal aunt. Physical Findings: Nurse did not find any significant physical abnormalities on exam. MG 3D Diag Mammo W/Cad RT CC, MLO, and XCCL view(s) were taken of the right breast. Prior study comparison: August 30, 2018, bilateral MG 3d screening mammo w/cad. June 11, 2016, left breast MG work up mamm w CAD LT. There are scattered fibroglandular densities. The previously seen abnormality resolves on additional views and appears as fibroglandular tissue compatible with summation. No suspicious abnormality. These results were verbally communicated with the patient and result sheet given to the patient on 04/20/19. ASSESSMENT: Benign, BI-RAD 2 RECOMMENDATION: Return to routine screening mammogram schedule for both breasts. Back on schedule.
== END | disposition home or self-care (01) ==
LOC: RADMAMWWP 08:14
PROVIDERS: ATTEND Obstetrics & Gynecology
DX: R92.8 Other abnormal and inconclusive findings on diagnostic imaging of breast (principal)
CPT/HCPCS: 77061; 77065

== ENCOUNTER → 2019-08-23 | Outpatient (CLI) | payer MEDICAID, BC ==
[2019-08-23 23:51] LABS: Hemoglobin A1C 5.4 % (4.0-6.0)
== END | disposition home or self-care (01) ==
LOC: LABWHC1 14:40
PROVIDERS: ATTEND Obstetrics & Gynecology
DX: Z13.1 Encounter for screening for diabetes mellitus (principal)
CPT/HCPCS: 36415; 83036

== ENCOUNTER → 2019-10-13 | Outpatient (CLI) | payer BC ==
[2019-10-13 10:14] LABS: HCT 44.2 % (34.0-46.0); HGB 14.3 gm/dL (11.4-16.0); MCH 29.7 pg (25.0-35.0); MCHC 32.4 g/dL (31.0-37.0); MCV 91.6 fL (80.0-100.0); Mean Platelet Volume 7.4; Platelet Count 322 k/uL (150-450); RBC 4.82 m/uL (3.80-5.40); RDW 13.3 % (11.5-15.5); WBC 16.4 k/uL (3.8-10.6)
[2019-10-13 16:25] LABS: African American GFR (CKD) 84.6 (60.0-200.0); Albumin 4.7 g/dL (3.80-4.90); Albumin/Globulin Ratio 1.96 (1.60-3.17); Anion Gap 10.8 mmol/L (4.00-12.00); Carbon Dioxide 24.2 mmol/L (21.6-31.8); Chol/HDL Ratio 4.07; Globulin 2.4 g/dL (1.6-3.3); LDL Cholesterol,Calculated 160.8 mg/dL (0.0-131.0); Potassium 4.6 mmol/L (3.5-5.5); Total Bilirubin 0.5 mg/dL (0.2-1.2); Total Protein 7.1 g/dL (6.2-8.2); VLDL Calculation 14.2 mg/dL (5.00-40.00)
== END | disposition home or self-care (01) ==
LOC: LABWHC1 09:31
PROVIDERS: ATTEND Obstetrics & Gynecology
DX: Z13.220 Encounter for screening for lipoid disorders (principal); Z13.29 Encounter for screening for other suspected endocrine disorder
CPT/HCPCS: 36415; 80053; 80061; 84439; 84443; 84480; 85027

== ENCOUNTER → 2019-10-24 | Outpatient (CLI) | payer BC ==
[2019-10-24 08:25] LABS: HCT 42.9 % (34.0-46.0); HGB 13.9 gm/dL (11.4-16.0); MCH 29.8 pg (25.0-35.0); MCHC 32.4 g/dL (31.0-37.0); MCV 91.9 fL (80.0-100.0); Mean Platelet Volume 7.3; Platelet Count 327 k/uL (150-450); RBC 4.67 m/uL (3.80-5.40); RDW 13.1 % (11.5-15.5)
== END | disposition home or self-care (01) ==
LOC: LABWHC1 07:37
PROVIDERS: ATTEND Obstetrics & Gynecology
DX: D72.819 Decreased white blood cell count, unspecified (principal)
CPT/HCPCS: 36415; 85027

== ENCOUNTER → 2020-10-15 | Outpatient (CLI) | payer BC ==
[2020-10-15 16:38] LABS: HCT 38.6 % (34.0-46.0); HGB 13.6 gm/dL (11.4-16.0); MCH 32.8 pg (25.0-35.0); MCHC 35.4 g/dL (31.0-37.0); MCV 92.8 fL (80.0-100.0); Mean Platelet Volume 7.8; Platelet Count 264 k/uL (150-450); RBC 4.16 m/uL (3.80-5.40); RDW 13.6 % (11.5-15.5); WBC 8.9 k/uL (3.8-10.6)
[2020-10-16 00:50] LABS: Hemoglobin A1C 5.2 % (4.0-6.0)
[2020-10-16 01:57] LABS: Albumin 4.6 g/dL (3.80-4.90); Albumin/Globulin Ratio 2.3 (1.60-3.17); Anion Gap 11.1 mmol/L (4.00-12.00); Calcium 9.5 mg/dL (8.7-10.3); Carbon Dioxide 24.9 mmol/L (21.6-31.8); Non-African American GFR(CKD) 63.8 (60.0-200.0); Potassium 4.4 mmol/L (3.5-5.5); Total Bilirubin 0.5 mg/dL (0.2-1.2); Total Protein 6.6 g/dL (6.2-8.2)
[2020-10-16 02:05] LABS: T4, Free (Free Thyroxine) 1.1 ng/dL (0.80-1.80)
== END | disposition home or self-care (01) ==
LOC: LABWHC1 16:06
PROVIDERS: ATTEND Obstetrics & Gynecology
DX: Z13.29 Encounter for screening for other suspected endocrine disorder (principal); R60.9 Edema, unspecified
CPT/HCPCS: 36415; 80053; 83036; 84439; 84443; 84479; 85027

== ENCOUNTER → 2021-04-01 | Outpatient (CLI) | payer BC ==
--- NOTE | 2021-04-01 16:06 | BD ---
EXAMINATION TYPE: Axial Bone Density DATE OF EXAM: 04/01/2021 COMPARISON: NONE CLINICAL HISTORY: postmenopausal Height: 5 FT 6 3/4 IN Weight: 230 FRAX RISK QUESTIONS: Alcohol (3 or more units per day): NO Family History (Parent hip fracture): NO Glucocorticoids (More than 3mos): NO (Ex: prednisone, prednisolone, methylprednisolone, dexamethasone, and hydrocortisone). History of Fracture in Adulthood: NO Secondary Osteoporosis: 1. Type 1 Diabetes: NO 2. Hyperthyroidism: NO 3. Menopause before 45: NO 4. Malnutrition: NO 5. Chronic liver disease: NO Rheumatoid Arthritis: NO Current Tobacco Use: NO RISK FACTORS HISTORY OF: Surgery to Spine/Hip(right/left)/Wrist (right/left): INDER HIP REPAIR When: 2012 AND 2014 Family History of Osteoporosis: NO Active: YES Diet low in dairy products/other sources of calcium: NO Postmenopausal woman: PART HYST 33 IfTake estrogen and/or progesterone medications: NO Lost more than 2 inches in height since high school: NO MEDICATIONS: Additional Medications: GABAPENTIN, Additional History: EXAM MEASUREMENTS: Bone mineral densitometry was performed using the [employer] System. Bone mineral density as measured about the Lumbar spine is: ----- L1-L4(G/cm2): 1.159 T Score Values are as follows: ----- L2: -0.5 ----- L3: -0.5 ----- L4: 0.9 ----- L1-L4: -0.2 Bone mineral density has: DECREASED -0.2 % since study of: 2015 Bone mineral density about the L Wrist (g/cm2): 0.751 T Score values are as follows: -----Dist. R+U: 0.8 -----Prox. R+U: 2.0 -----Radius total: 1.3 FIRST TIME WRIST HAS BEEN DONE IMPRESSION: Normal bone density NOTE: T-SCORE=SD OF THE YOUNG ADULT MEAN.
--- NOTE | 2021-04-02 13:26 | MM ---
Reason for exam: screening (asymptomatic). Last mammogram was performed 1 year and 11 months ago. History: Patient is postmenopausal. Family history of breast cancer in mother at age 58 and breast cancer in maternal aunt. Took hormonal contraceptives for 15 years. Physical Findings: A clinical breast exam by your physician is recommended on an annual basis and results should be correlated with mammographic findings. MG Screening Mammo w CAD Bilateral CC and MLO view(s) were taken. Prior study comparison: April 20, 2019, right breast MG 3d diag mammo w/cad RT. August 30, 2018, bilateral MG 3d screening mammo w/cad. There are scattered fibroglandular densities. ASSESSMENT: Negative, BI-RAD 1 RECOMMENDATION: Routine screening mammogram of both breasts in 1 year.
== END | disposition home or self-care (01) ==
LOC: RADMAMWWP 10:19
PROVIDERS: ATTEND Obstetrics & Gynecology
DX: Z12.31 Encounter for screening mammogram for malignant neoplasm of breast (principal); Z78.0 Asymptomatic menopausal state; Z80.3 Family history of malignant neoplasm of breast; Z79.3 Long term (current) use of hormonal contraceptives
CPT/HCPCS: 77067; 77080

== ENCOUNTER → 2022-04-11 | Outpatient (CLI) | payer BC ==
--- NOTE | 2022-04-14 08:31 | MM ---
Reason for Exam: Screening (asymptomatic). Last screening mammogram was performed 12 month(s) ago. Patient History: Menarche at age 14. First Full-Term at age 20. Hysterectomy at age 33. Postmenopausal. Patient used Hormonal Contraceptives for 15 years. Maternal aunt had breast cancer, age 45. Mother had breast cancer, age 58. Risk Values: Farzana 5 year model risk: 2.3%. NCI Lifetime model risk: 14.5%. Prior Study Comparison: 08/30/2018 Bilateral Screening Mammogram, [facility]. 04/20/2019 Right Diagnostic Mammogram, [facility]. 04/01/2021 Bilateral Screening Mammogram, [facility]. Tissue Density: There are scattered fibroglandular densities. Findings: Analyzed By CAD. Small stable focal asymmetries in the outer mid right cranial caudal breast. No suspicious groups of microcalcifications, spiculated or lobular masses, architectural distortion or other secondary signs of malignancy are mammographically apparent. Overall Assessment: Benign, BI-RAD 2 Management: Screening Mammogram of both breasts in 1 year. A negative mammogram report should not preclude additional follow up of suspicious palpable abnormalities. Patient should continue monthly self breast exam. A clinical breast exam by your physician is recommended on an annual basis and results should be correlated with mammographic findings. Electronically signed and approved by: Ernie Stone D.O. Radiologis
== END | disposition home or self-care (01) ==
LOC: RADMAMWWP 07:27
PROVIDERS: ATTEND Obstetrics & Gynecology
DX: Z12.31 Encounter for screening mammogram for malignant neoplasm of breast (principal); Z80.3 Family history of malignant neoplasm of breast; Z78.0 Asymptomatic menopausal state
CPT/HCPCS: 77067

== ENCOUNTER 2022-10-17 09:50 | Day surgery (SDC) | payer BC ==
[~2022-10-17 09:50] MED LIST changes: +DEXAMETHASONE SOD PHOSPHATE 4 MG/ML 1 ML VIAL IV ONE; +HYDROmorphone 0.5 MG/0.5 ML SYRINGE IVP PRN; +LIDOCAINE 1% (10MG/ML) FOR IV START INTRADERMA PRN; +ONDANSETRON 4 MG/2 ML VIAL IVP ONE
[2022-10-17] MEDS ORDERED: MIDAZOLAM 2 MG/2 ML VIAL IVP ONE (10:40)
[2022-10-17] MEDS ORDERED: fentaNYL (PF) 50 MCG/1 ML VIAL IVP ONE (10:42)
[2022-10-17] MEDS ORDERED: ROPIVACAINE 5 MG/ML 30 ML VIAL ONE (11:10)
[2022-10-17] MEDS ORDERED: LIDOCAINE 2% INJ 20 MG/ML (2 ML VIAL) ONE (11:10)
[2022-10-17] MEDS ORDERED: SODIUM CHLORIDE 0.9% (PF) 10 ML VIAL ONE (11:10)
[2022-10-17] MEDS ORDERED: HYDROmorphone (PF) 1 MG/ML ONE (11:10)
[2022-10-17] MEDS ORDERED: SUCCINYLCHOLINE CHLORIDE 200 MG/10 ML VIAL IV ONE (11:10)
[2022-10-17] MEDS ORDERED: PROPOFOL 10 MG/ML 20 ML VIAL IV ONE (11:10)
[2022-10-17] MEDS ORDERED: fentaNYL (PF) 50 MCG/ML 2 ML AMP ONE (11:10)
[2022-10-17] MEDS ORDERED: ceFAZolin 1,000 MG in SODIUM CHLORIDE 0.9% 1,000 ML IRRIGATION ONE (11:15)
--- NOTE | 2022-10-17 11:37 | P.ANPRN ---
Procedure Note - Anesthesia - Nerve Block Performed Right Popliteal Single Time Out Performed: Yes (1040) Date of Procedure: 10/17/22 Procedure Start Time: 10:41 Procedure Stop Time: 10:43 Location of Patient: PreOp Indication: Acute Post-Operative Pain, Requested by Surgeon Specifically requested for management of pain by DrMaria Isabel: Sebastien Cardozo Sedation Type: Sedate with meaningful contact maintained Preparation: Sterile Prep Position: Left Lateral Catheter: None Needle Types: Pajunk Needle Gauge: 21 Ultrasound used to visualize needle placement: Yes Ultrasound used to observe medication spread: Yes Injectate: 0.5% Ropivacaine (see comment for volume) (15cc + 5cc nacl pf) Blood Aspirated: No Pain Paresthesia on Injection Noted: No Resistance on Injection: Normal Image Stored and Saved: Yes Events: Uneventful and Well Tolerated
--- NOTE | 2022-10-17 11:40 | P.ANPRN ---
Procedure Note - Anesthesia - Nerve Block Performed Right Adductor Canal Single Time Out Performed: Yes (1040) Date of Procedure: 10/17/22 Procedure Start Time: 10:44 Procedure Stop Time: 10:46 Location of Patient: PreOp Indication: Acute Post-Operative Pain, Requested by Surgeon Specifically requested for management of pain by DrMaria Isabel: Sebastien Cardozo Sedation Type: Sedate with meaningful contact maintained Preparation: Sterile Prep Position: Supine Catheter: None Needle Types: Pajunk Needle Gauge: 21 Ultrasound used to visualize needle placement: Yes Ultrasound used to observe medication spread: Yes Injectate: 0.5% Ropivacaine (see comment for volume) (15cc + 5cc nacl) Blood Aspirated: No Pain Paresthesia on Injection Noted: No Resistance on Injection: Normal Image Stored and Saved: Yes Events: Uneventful and Well Tolerated
[2022-10-17 13:23] VITALS: TEMP 97
--- NOTE | 2022-10-17 13:35 | P.OP ---
Date of Procedure: 10/17/22 Preoperative Diagnosis: 1. Posterior tibial tendinitis right foot 2. Acquired deformity right foot 3. Subluxation of tarsal joint right foot 4. Gastroc equinus right foot Postoperative Diagnosis: 1. Posterior tibial tendinitis right foot 2. Acquired deformity right foot 3. Subluxation of tarsal joint right foot 4. Gastroc equinus right foot Procedure(s) Performed: 1. Kidner procedure right foot 2. Medial displacement calcaneal osteotomy right foot 3. Open repair of dislocated tarsal joint right foot 4. Gastroc recession right leg Implants: Arthrex internal brace Arthrex 7.0 mm screw 1, 5.0 mm screw 1 Anesthesia: [id number] Surgeon: Sebastien Cardozo Estimated Blood Loss (ml): 5 Pathology: none sent Condition: stable Disposition: PACU Description of Procedure: Prior to the patient being brought to the operative room, anesthesia administere d a nerve block on the right lower extremity. The patient was then brought into the operating room and placed on table in the supine position. Timeout was taken to confirm correct patient identifiers, correct laterality of surgery, and correct procedure. Once all staff in the room were in agreement with the timeout, the patient was induced and placed under general anesthesia. A well- padded tourniquet was placed on the right thigh and a bump underneath the right hip to internally rotate the right leg. The right leg was prepped and draped in usual manner. The right leg was exsanguinated and the tourniquet inflated to 250 mmHg. The knee was flexed sew the foot could be brought off the table and then it was set onto the fluoroscope. The patellar markers are used to the outline the proper location of the calcaneal osteotomy. Once done a line was drawn over the skin to delineate the direction. Small stab incision was made through the skin over the previously line drawn centrally located on the calcaneal body. A periosteal elevator was inserted to remove the periosteum off of the calcaneus again, along the same line that the osteotomy would be completed. Then a rotary bur was activated inserted through the small stab incision and was taken from the lateral to the medial cortex then utilizing the quadrant technique, the osteotomy was completed under direct fluoroscopic visualization. Once completed, the calcaneal tuberosity was shifted medially to correct the frontal plane deformity of the rear foot. Once it was adequately shifted, guidewires for cannulated screws were inserted in the posterior aspect of the calcaneus across the osteotomy. Fluoroscopic imaging confirmed proper placement of the wires for the screw placement. The more distal hole was over drilled for the 7.0 mm headless screw. The screw was inserted and advanced until the head engaged the proximal cortex of the calcaneus. There is significant bite on the screw and excellent compression as indicated by the fluoroscope. The same procedure was used for the more superior wire utilizing a 5.0 mm headless fully threaded screw. Fluoroscopy confirmed the proper position of both screws as well as excellent compression across the osteotomy. The guidewires were removed and the wound was irrigated. A single lizy used to close the skin laterally. At that point the wedge was taken out of the right hip so that the right leg be externally rotated. Attention then directed to the posterior calf area where an incision was made just medial to the midline and distal to the gastroc muscle belly. It was deepened down to the subcutaneous tissue careful to identify, avoid, and retract any neurovascular structures and cauterize any bleeding vessels. Blunt dissection was carried through the saphenous layer down to the deep fascia. The deep fascia was incised and reflected then blunt dissection was continued until the aponeurosis of the gastrocsoleus complex was encountered. The aponeurosis was mobilized and a transverse incision was made from lateral to medial through the tissue. The ankle was then dorsiflexed and a gap appeared in the aponeurosis, indicating a full release. That wound is irrigated thoroughly with antibiotic saline. Subcu closure was completed with 3-0 Monocryl. Skin closure done with lizy. Then attention was directed over the medial aspect of the right foot and ankle, where an incision was made starting distal to the navicular tuberosity and ending near the distal tip of the medial malleolus. The incision was deepened down to the saphenous tissue careful to identify, avoid, and retract any neurovascular structures and cauterize any bleeding vessels. Blunt dissection was carried down to the tendon sheath over the posterior tibial tendon. The sof t tissue was incised superior to the insertion of the posterior tibial tendon and the reflected off of the navicular in one full-thickness flap. The posterior tibial tendon was also inspected this time, and it was noted to not have any evidence of degeneration or thickening. Therefore the decision was made to complete the Kidner procedure. Prior to completing the Kidner procedure, the spring ligament repair was done as follows. Blunt dissection was continued through this soft tissue over the sustentaculum salome. A guidewire was aligned under live fluoroscopy to locate the proper location of the drill in the sustentaculum salome. Once the wire was in proper position it was advanced plantarly and slightly posteriorly to avoid the subtalar joint. Drilling over the same guidewire was completed and then the hole was tapped to proper depth for the anchor placement. A 3.5 mm anchor was inserted and the drill hole and advanced to proper depth. The avionics engineer was removed and the suture set aside. Then attention was directed to the navicular tuberosity, where a guidewire was inserted on the plantar side of the tuberosity and advanced out the dorsal aspect of the talar body. This was done under direct fluoroscopic visualization to avoid the talonavicular and naviculocuneiform joints. Once confirmation of the wire placement was completed, a drill hole for a 4.75 swivel lock anchor was made from plantar to dorsal. The plantar arm of the spring ligament repair kit along with the shuttle suture was passed from plantar to dorsal. The shuttle suture was then utilized to move the dorsal arm of the spring ligament repair kit from dorsal to plantar. With the foot slightly inverted and tension placed over both sutures, a 4.75 anchor was inserted through the drill hole on the plantar aspect of the navicular and advanced into the drill hole to lock the suture in place. Once completed there was a stable construct noted for the spring ligament repair. Attention was redirected to the navicular tuberosity for the Kidner procedure. A Nelson was used to remove the cortical bone of the medial aspect of the navicular tuberosity. Then Drill holes for Arthrex fiber Pal anchors were made into the body of the navicular. Utilizing the suture attached to the anchors, the posterior tibial tendon and a full-thickness flap previously dissected were oversewn and tightened back onto the navicular while holding the rear foot and midfoot inverted. The suture still attached the dorsal portion of the flap was oversewn on the repair site in a pants over vest fashion. The wound is then thoroughly irrigated with antibiotic saline. The tendon sheath over the posterior tibial tendon was repaired with 2-0 Vicryl. Subcutaneous closure was done with 3-0 Monocryl. And skin closure done with lizy. Arthrex jumpstart dressings were placed over all the incisions. A bulky dry dressings applied to the right foot and ankle. The tourniquet was released and capillary refill return to all digits of the right foot. A well-padded, well molded plaster posterior mold below-knee sugar tong splint was applied. The ankle was held in neutral position and the foot slightly inverted as it dried. Once fully dried, anesthesia was reversed and the patient was taken recovery with vital signs stable
[2022-10-17] MEDS ORDERED: HYDROcodone/APAP 7.5-325MG 1 EACH TAB ONE (14:39)
[2022-10-17 14:46] VITALS: RESP 18
[2022-10-17 14:54] VITALS: BP 131/80; PULSE 55
== END 2022-10-17 15:35 | disposition home or self-care (01) ==
LOC: OR 09:50
PROVIDERS: ATTEND Podiatrist
DX: M76.821 Posterior tibial tendinitis, right leg (principal); M21.6X1 Other acquired deformities of right foot; S93.311A Subluxation of tarsal joint of right foot, initial encounter; K21.9 Gastro-esophageal reflux disease without esophagitis; Z87.19 Personal history of other diseases of the digestive system; Z79.891 Long term (current) use of opiate analgesic; Z79.899 Other long term (current) drug therapy; Z79.01 Long term (current) use of anticoagulants; Z98.890 Other specified postprocedural states; F10.20 Alcohol dependence, uncomplicated; E66.9 Obesity, unspecified; Z68.34 Body mass index [BMI] 34.0-34.9, adult
CPT/HCPCS: 64447; 64445; 76942; 28238; 28300; 27687; 27695; 28555; C1713 ×3; J2250; J0330; J1100; J0690 ×2; J2405; J3010 ×2; J1170; J2795; J2704; J2001

== ENCOUNTER → 2024-05-31 | Outpatient (CLI) | payer BC ==
--- NOTE | 2024-06-01 13:42 | MM ---
Reason for Exam: Screening (asymptomatic). Last mammogram was performed 1 year(s) and 2 month(s) ago. Patient History: Menarche at age 14. First Full-Term at age 20. Hysterectomy at age 33. Postmenopausal. Patient used Hormonal Contraceptives for 15 years. Maternal aunt had breast cancer, age 45. Mother had breast cancer, age 58. Risk Values: Farzana 5 year model risk: 2.5%. NCI Lifetime model risk: 13.8%. Prior Study Comparison: 04/01/2021 Bilateral Screening Mammogram, [facility]. 04/11/2022 Bilateral MG screening mammo w CAD, [facility]. 04/13/2023 Bilateral MG screening mammo w CAD, [facility]. Tissue Density: There are scattered areas of fibroglandular density. Findings: Analyzed By CAD. There is no suspicious group of microcalcifications or new suspicious mass in either breast. Overall Assessment: Negative, BI-RAD 1 Management: Screening Mammogram of both breasts in 1 year. . Patient should continue monthly self-breast exams. A clinical breast exam by your physician is recommended on an annual basis. This exam should not preclude additional follow-up of suspicious palpable abnormalities. Note on Farzana scores and lifetime risk: 1. A Farzana score greater than 3% is considered moderate risk. If this is the case, consider specialist referral to assess eligibility for a risk reducing agent. 2. If overall lifetime risk for the development of breast cancer is 20% or higher, the patient may qualify for future screening with alternating mammogram and breast MRI. Electronically signed and approved by: Catarino Banegas M.D. Radiologis
== END | disposition home or self-care (01) ==
LOC: RADMAMWWP 10:03
PROVIDERS: ATTEND Family Medicine
DX: Z12.31 Encounter for screening mammogram for malignant neoplasm of breast
CPT/HCPCS: 77063; 77067